=== PATIENT | female | born 2000 | race African-American/Black ===

== ENCOUNTER 2022-04-21 07:20 | Observation (INO) | payer OTHER, SELFPAY ==
[2022-04-21] VITALS (24 sets, daily range): BP systolic 120–140; BP diastolic 80–98; PULSE 95–142; RESP 17–35; TEMP 36.6–38; O2SAT 97–100; BMI 39.2
--- NOTE | ~2022-04-21 | CT_ITS ---
EXAMINATION: CTA chest PE protocol DATE: 04/21/2022 09:38 INDICATION: Chest pain. Shortness of breath. TECHNIQUE: Computed tomography angiography (CTA) of the chest was performed with 100 mL Omnipaque-350 intravenous contrast timed to evaluate the pulmonary arteries. Coronal maximum intensity projection 3D-reconstructions were created by the technologist. Automated exposure control and iterative reconst ruction technique were employed. The dose-length product was 610.51 mGy-cm. COMPARISON: None. FINDINGS: There are airspace and groundglass opacities in right middle lobe with air bronchograms, co nsistent with pneumonia. No pleural effusion. The heart size is normal. No pericardial effusion. Ther e is no pulmonary embolus. The bones are unremarkable. IMPRESSION: 1. No pulmonary embolus. Sensitivity is mildly decreased by motion artifact. 2. Right middle lobe pneumonia. Reviewed, dictated and finalized at location A.
[2022-04-21 08:10] LABS: Basophils Absolute Auto 0.1 K/mm3 (0.0-0.1); Basophils Percent Auto 0.3 % (0.2-1.2); Eosinophils Percent Auto 0.2 % (0-4.4); Hematocrit 40.7 % (37.0-47.0); Hemoglobin 12.9 g/dL (12.0-15.0); Immature Granulocyte Absolute 0.12 K/mm3 (0.00-0.031); Immature Granulocyte Percent A 0.5 % (0-0.5); Lymphocytes Absolute Auto 2.53 K/mm3 (0.9-3.2); Lymphocytes Percent Auto 11.6 % (18.3-44.2); Mean Corpuscular HGB Conc 31.7 g/dl (32-36); Mean Corpuscular Hemoglobin 25.2 pg (26-34); Mean Corpuscular Volume 79.6 fl (80-100); Monocytes Absolute Auto 1.7 K/mm3 (0.1-0.6); Neutrophils Absolute Auto 17.3 K/mm3 (1.3-6.7); Platelet Count Result 325 k/mm3 (150-375); Red Blood Count 5.11 M/mm3 (4.2-5.4); Red Cell Distribution Width 14.2 % (11.5-14.5); White Blood Count 21.8 K/mm3 (4.5-10.0)
[2022-04-21] MEDS: SODIUM CHLORIDE 0.9% IV 1,000 ML 999 ML IV CONT (08:12)
[2022-04-21 08:22] LABS: INR 1.1; Prothrombin Time 13.9 Seconds (11.1-14.7)
[2022-04-21 08:23] LABS: Lactic Acid Reflex 1.7 mmol/L (0.7-2.0); Partial Thromboplastin Time 30.9 SECONDS (22.3-36.8)
[2022-04-21 08:24] LABS: Alanine Aminotransferase 21 U/L (6-35); Albumin Level 4.7 g/dL (3.5-5.1); Alkaline Phosphatase 132 U/L (38-126); Anion Gap 10 mmol/L (8-16); Aspartate Amino Transferase 21 U/L (14-36); Bilirubin,Total 0.6 mg/dL (0.2-1.3); Blood Urea Nitrogen 7 mg/dL (7-17); Calcium 9.1 mg/dL (8.4-10.2); Carbon Dioxide 21 mmol/L (22-30); Chloride 105 mmol/L (98-107); Estimated CRCL calculation 106 ml/min; Estimated Glomerular Filt Rate > 60; Glucose 125 mg/dL (65-110); Potassium 3.7 mmol/L (3.4-5.0); Sodium 136 mmol/L (137-145)
[2022-04-21 08:36] LABS: Neutrophils Percent Auto 79.4 % (45.5-73.1)
[2022-04-21 08:48] LABS: Influenza A QL RT-PCR Negative (Negative); Influenza B QL RT-PCR Negative (Negative); SARS-CoV-2 RNA PCR Negative
--- NOTE | 2022-04-21 09:59 | ED.GENADULT ---
HPI - General Adult General Chief complaint: Upper Respiratory Infection Stated complaint: fever/cough since sat Time Seen by Provider: 04/21/22 07:28 History of Present Illness HPI narrative: Patient is a 21-year-old female who presents ER with shortness of breath. She reports 2 days ago she developed a slight sore throat and then over the last 2 days she has developed shortness of breath. She feels racing the heart. Has some mild discomfort with deep breaths. She is taken 2 COVID swabs which both been negative. Denies fevers or chills or sweats. No known sick contacts. She has a Nexplanon. No lower extremity swelling or calf cramping. No hemoptysis. Related Data Allergies Allergy/AdvReac Type Severity Reaction Status Date / Time No Known Allergies Allergy Verified 04/21/22 07:27 Review of Systems Review of Systems: All systems reviewed & are unremarkable except as noted in HPI and below Constitutional: Constitutional: Denies chills and Denies fever(s) ENT: Denies nasal congestion and Reports sore throat Cardiovascular: Cardiovascular: Reports chest pain, Reports rapid heart rate and Denies radiating jaw, neck or arm pain Respiratory: Respiratory: Denies chest congestion, Denies cough and Reports dyspnea Gastrointestinal: Gastrointestinal: Denies abdominal pain, Denies nausea and Denies vomiting PMFSH Past Medical History Medical History (Updated 04/21/22 @ 18:36 by Larry Clements MD) Anxiety and depression Surgical History Surgical History (Updated 04/21/22 @ 15:24 by Pricila Chan PA-C) History of open reduction and internal fixation (ORIF) procedure Repair of left tibia and fibula fractures with subsequent hardware removal in 2020. Social History Social History (Updated 04/21/22 @ 15:24 by Pricila Chan PA-C) Social History: Surrogate decision maker: Dipika Curry, mother. Code status: Full code. Smoking status: Never smoker Alcohol intake: never Substance use: never Substance use type: does not use Spiritual care concerns: No Exam Narrative: GENERAL: Well-appearing, well-nourished, and in no acute distress. HEAD: Normocephalic, atraumatic. EYES: PERRL and EOMI. CHEST: Right basilar wheezing otherwise clear No respiratory distress. HEART: Tachycardic and regular. Normal peripheral pulses. ABDOMEN: Soft, nontender, nondistended. EXTREMITIES: Normal range of motion. No edema. SKIN: Warm, dry, no rash. NEURO: Alert and oriented x3. PSYCH: Normal mood and affect. Course Course Emergency Course: Patient spiked fever and received Tylenol. Patient still with persistent tachycardia in 120s after a liter of fluid. Given lobar pneumonia and elevated white count of 21,800 we will admit the patient for observation and IV antibiotics. Vital Signs Vital signs: Vital Signs Temperature 98.2 F 04/21/22 07:24 Pulse Rate 137 H 04/21/22 07:24 Respiratory Rate 22 H 04/21/22 07:24 Blood Pressure 132/89 04/21/22 07:24 Pulse Oximetry 100 04/21/22 07:24 Oxygen Delivery Room Air 04/21/22 07:24 Temperature 99 F 04/21/22 13:30 Pulse Rate 95 04/21/22 13:30 Respiratory Rate 20 04/21/22 13:30 Blood Pressure 131/83 04/21/22 13:30 Pulse Oximetry 100 04/21/22 13:30 Oxygen Delivery Room Air 04/21/22 09:10 Medical Decision Making Vital Signs Vital Signs: Vital Signs Temperature 98.2 F 04/21/22 07:24 Pulse Rate 137 H 04/21/22 07:24 Respiratory Rate 22 H 04/21/22 07:24 Blood Pressure 132/89 04/21/22 07:24 Pulse Oximetry 100 04/21/22 07:24 Oxygen Delivery Room Air 04/21/22 07:24 Temperature 99 F 04/21/22 13:30 Pulse Rate 95 04/21/22 13:30 Respiratory Rate 20 04/21/22 13:30 Blood Pressure 131/83 04/21/22 13:30 Pulse Oximetry 100 04/21/22 13:30 Oxygen Delivery Room Air 04/21/22 09:10 Lab Data Result diagrams: 04/21/22 07:52 04/21/22 07:52 Labs: Lab Results
--- NOTE | 2022-04-21 12:04 | ADMGEN ---
This patient, Petr Curry, was admitted to [facility] Room 312[facility]01. Patient/family oriented to hospital policies and general routines including ID bracelet, bed and alarms, visiting hours, pain management, procedures, bathroom and other care routines, personal items, smoking policy, room service/diet, and visiting hours. Information on how to activate the Rapid Response Team has been discussed. Patient/Family are encouraged to report perceived risks to care and to ask questions if they do not understand what they are told or what they should do.
--- NOTE | 2022-04-21 14:45 | PM.IMHP ---
H&P: HPI History of Present Illness Date/Time: 04/21/22 14:45 Chief Complaint: Fever, cough, and shortness of breath. Narrative: This is a very pleasant previously healthy 21-year-old female presented to the emergency department from home for evaluation of fever, cough, and shortness of breath. Several days ago she did not feel well and reports having a pretty severe sore throat. She took the weekend off of work and was not allowed to return until she had a negative COVID test. She was to returned to work today however last night she developed a cough productive of yellow phlegm and in fact she has had such severe coughing jags that she has had several episodes of post-tussive emesis. She has also been running a fever and she decided to come in today for evaluation. White blood cell counts were significantly increased at 21.8 and she was found to have a right middle lobe pneumonia on CTA of the chest and she is being admitted in this setting. Influenza A and B, rapid strep screen, and SARS-CoV-2 by PCR were all negative. She denies sick contacts and recent travel. No concerns for dysphagia or aspiration. Her appetite has been good and she denies nausea. She has not had any diarrhea. Review of Systems Review of Systems: Twelve systems were reviewed. No headache or neck ache. No rash. No significant sinus congestion. Sore throat has improved. She has had some chest discomfort with coughing which she relates to muscle aches. She is currently on her menstrual cycle. Except as documented, all other systems were reviewed and are negative. [facility] Past Medical History Medical History (Updated 04/21/22 @ 18:36 by Larry Clements MD) Anxiety and depression Surgical History Surgical History (Updated 04/21/22 @ 15:24 by Pricila Chan PA-C) History of open reduction and internal fixation (ORIF) procedure Repair of left tibia and fibula fractures with subsequent hardware removal in 2020. Family History Family History (Updated 04/21/22 @ 23:03 by Pricila Chan PA-C) Other Hypertension Social History Social History (Updated 04/21/22 @ 23:04 by Pricila Chan PA-C) Social History: Surrogate decision maker: Dipika Curry, mother. Code status: Full code. Smoking status: Never smoker Alcohol intake: never Substance use: never Substance use type: does not use Additional living arrangements comments: The patient lives in [place] with her mother. 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 Employed part-time at a [employer] Spiritual care concerns: No Meds Home Medications and Allergies Allergies Allergy/AdvReac Type Severity Reaction Status Date / Time No Known Allergies Allergy Verified 04/21/22 07:27 Vital Signs Vital Signs - 24 hr 04/21/22 07:24 04/21/22 09:08 04/21/22 09:10 Temperature 98.2 F 100.4 F H Pulse Rate 137 H 133 H Respiratory Rate 22 H 21 H Blood Pressure 132/89 138/98 H Pulse Oximetry 100 100 98 Oxygen Delivery Room Air Room Air 04/21/22 07:26 04/21/22 07:31 04/21/22 07:32 Temperature Pulse Rate 139 H 132 H 142 H Respiratory Rate 21 H 20 18 Blood Pressure 140/98 H Pulse Oximetry 100 100 100 Oxygen Delivery 04/21/22 07:52 04/21/22 08:12 04/21/22 08:15 Temperature Pulse Rate 129 H 118 H 122 H Respiratory Rate 35 H 27 H 24 H Blood Pressure 123/80 Pulse Oximetry 100 100 100 Oxygen Delivery 04/21/22 08:16 04/21/22 08:49 04/21/22 09:10 Temperature Pulse Rate 135 H 118 H 125 H Respiratory Rate 22 H 24 H 22 H Blood Pressure Pulse Oximetry 100 100 99 Oxygen Delivery 04/21/22 09:15 04/21/22 09:16 04/21/22 09:40 Temperature 99.4 F Pulse Rate 122 H 131 H 121 H Respiratory Rate 25 H 25 H 27 H Blood Pressure 126/94 H Pulse Oximetry 97 99 100 Oxygen Delivery 04/21/22 09:47 04/21/22 10:07 04/21/22 10:44 Temperatu
[2022-04-21 17:51] LABS: Procalcitonin 0.1 ng/mL
[2022-04-21] MEDS: ALBUTEROL SULFATE NEB 2.5 MG/3 ML INH 5 MG INHALATION (19:58)
[2022-04-22 02:36] VITALS: PULSE 89; RESP 18
[2022-04-22] MEDS: ALBUTEROL SULFATE NEB 2.5 MG/3 ML INH 5 MG INHALATION ×2 (02:36→08:47)
[2022-04-22 02:50] VITALS: PULSE 93; RESP 18
[2022-04-22 06:00] VITALS: BP 123/87; PULSE 88; RESP 18; TEMP 36.6; O2SAT 99
[2022-04-22 08:50] VITALS: PULSE 83; RESP 18; O2SAT 97
[2022-04-22 09:01] VITALS: PULSE 86; RESP 18
[2022-04-22] MEDS: ENOXAPARIN 40 MG/0.4 ML SYRINGE SUB-Q (09:33)
[2022-04-22 09:44] LABS: Hematocrit 40.8 % (37.0-47.0); Hemoglobin 12.8 g/dL (12.0-15.0); Mean Corpuscular HGB Conc 31.4 g/dl (32-36); Mean Corpuscular Hemoglobin 25.3 pg (26-34); Mean Corpuscular Volume 80.6 fl (80-100); Platelet Count Result 313 k/mm3 (150-375); Red Blood Count 5.06 M/mm3 (4.2-5.4); Red Cell Distribution Width 14.6 % (11.5-14.5); White Blood Count 19.1 K/mm3 (4.5-10.0)
[2022-04-22 10:02] LABS: Alanine Aminotransferase 22 U/L (6-35); Albumin Level 4.4 g/dL (3.5-5.1); Alkaline Phosphatase 115 U/L (38-126); Anion Gap 10 mmol/L (8-16); Aspartate Amino Transferase 20 U/L (14-36); Bilirubin,Total 0.3 mg/dL (0.2-1.3); Blood Urea Nitrogen 5 mg/dL (7-17); CRP 7.6 mg/dL (<1.0); Calcium 9.1 mg/dL (8.4-10.2); Carbon Dioxide 23 mmol/L (22-30); Chloride 106 mmol/L (98-107); Estimated CRCL calculation 122 ml/min; Estimated Glomerular Filt Rate > 60; Glucose 144 mg/dL (65-110); Magnesium 2.2 mg/dL (1.6-2.3); Potassium 3.5 mmol/L (3.4-5.0); Sodium 139 mmol/L (137-145)
--- NOTE | 2022-04-22 11:35 | PM.DS ---
DS: Admitting Diagnosis Discharge Date 04/22/2022 1155 Admitting Diagnosis Sepsis Right middle lobe pneumonia DS: Discharge Diagnosis Discharge Diagnosis (1) Sepsis: Code(s): A41.9 - Sepsis, unspecified organism Status: Acute (2) Right middle lobe pneumonia: Code(s): J18.9 - Pneumonia, unspecified organism Status: Acute DS: Summary Hospital Course Reason for hospitalization: pneumonia Hospital Course: Petr Curry is a pleasant previously healthy 21-year-old female who presented to the emergency department from home for evaluation of fever, cough, and shortness of breath. Several days ago she did not feel well and reported severe sore throat. She took the weekend off of work and was not allowed to return until she had a negative COVID test.? She was to returned to work on the day of admission, however, the previous evening she developed a cough with productive of yellow phlegm and severe coughing that resulted in several episodes of post-tussive emesis. She reported fever, as well. In the ED, white blood cell counts was 21.8 and she was found to have a right middle lobe pneumonia on CTA of the chest. Influenza A and B, rapid strep screen, and SARS-CoV-2 by PCR were all negative. she was febrile with temp 100.4F, tachycardia 137 bpm, RR 22 bpm, BP 131/82 and spO2 100% on room air. She denied sick contacts and recent travel. No concerns for dysphagia or aspiration. Her appetite has been good and she denies nausea.? She has not had any diarrhea. She was treated with IV acetaminophen 1 gram x1, Rocephin 1 gram IV x1, Azithromycin 500 mg IV x1, and 1 liter NS bolus. She remained tachycardic following the above treatment and was referred for observation. The patient presented to the medical floor and was continued on IV Rocephin 1 gram Q24 hours and Azithromycin 500 mg IV Q24 hours. She also received as needed bronchodilator treatments. Blood cultures were drawn on admission and were preliminarily negative. The following morning the patient reported improvement in symptoms. She ambulated in the hallway without c/o dyspnea or desaturation. She was transitioned to oral azithromycin 250 mg PO daily x 4 days for atypical coverage, amoxicillin 1 gram Q8 hours x4 days, and tessalon perles 100 mg Q12 hours as needed for cough. She was discharged home in stable condition without the need for supplemental oxygen. She was afebrile at discharge. Status at Discharge Cognitive/behavioral status at discharge: AOx4, pleasant Functional status at discharge: independent ambulation Overall status at discharge: patient is back to baseline Time Spent with Patient Time attestation: Total time spent providing and/or coordinating discharge services: Time spent: Less than 30 minutes Exam Narrative: General:?Well-developed, nontoxic female sitting up in bed in no distress. No oxygen. HEENT:??PERRL, EOMI.? Sclerae anicteric.? Oral mucosa moist. Mild erythema of the tonsillar pillars.? No tonsillar exudate. Neck:??Supple. No lymphadenopathy. Respiratory:?Respirations are nonlabored. Bronchial breath sounds noted in the right mid to lower lobe. No wheezing, rhonchi or rales. Cardiovascular:?Normal S1-S2 regular rate and rhythm. No murmur, gallop or rubs. Gastrointestinal:??Abdomen is soft, round, nontender, and nondistended with positive bowel sounds. Skin:??Warm and dry.? No rash or lesions on limited exam. Extremities:??No cyanosis, clubbing, or edema. Radial and pedal pulses intact. Neurological:??AOx4? Cranial nerves 2-12 are grossly intact. No gross focal deficits to casual conversation. Psychiatric:??Pleasant and cooperative with normal mood and affect.? DS: Data Data Completed and Pending Completed studies during hospitalization: Chest CTA Pending studies at discharge: N/A Labs on day of discharge: Labs from last 24 hours 04/22/22 04/22/22 04/21/22 09:20 09:20 19:46 WBC 19.1 H RBC 5.06 Hgb 12.8 Hct 40.8 M
[2022-04-25 23:19] LABS: Legionella pneumophila Ag Ur Not Detected (Not Detected)
[2022-05-25 14:53] LABS: Pneumococcal Antigen Urine Not Detected
== END 2022-04-22 12:12 | disposition home or self-care (01) ==
LOC: ANHED 08:42 → ANH3MEDSUR 11:06
PROVIDERS: Physician Assistant; Admitting Provider Family Medicine; Emergency Provider Emergency Medicine; Visit Provider Family Medicine
DX: A41.9 Sepsis, unspecified organism (principal); J18.9 Pneumonia, unspecified organism; R00.0 Tachycardia, unspecified; F32.A Depression, unspecified; F41.9 Anxiety disorder, unspecified; Z20.822 Contact with and (suspected) exposure to COVID-19
CPT/HCPCS: 36415; 71275; 80053; 81025; 83605; 83735; 84145; 84443; 85025; 85027; 85610; 85730; 86140; 87040; 87070; 87081; 87205; 87449; 87502; 87880; 87899; 94640; 96361; 96365; 96372; 96374; 96375; 99285; C9803; G0378; G0379; J0131; J0456; J0696; J1650; J7030; Q9967; U0003; U0005